=== PATIENT | male | born 1960 | race Caucasian/White ===

== ENCOUNTER 2022-08-28 11:42 | Day surgery (SDC) | payer OTHER, BC ==
[2022-08-28 11:49] VITALS: BMI 31.0
[2022-08-28] MEDS ORDERED: SODIUM CHLORIDE 1,000 ML IV STA (12:36)
[2022-08-28] MEDS ORDERED: CEFTRIAXONE 1 GM in DEXTROSE 5%-WATER - 100 ML IVPB ONE (12:45)
[2022-08-28 12:49] LABS: EOS % 2.8 % (0-4.5); HEMATOCRIT 44.2 % (35.4-49); HEMOGLOBIN 15.6 GM/dL (11.7-16.9); LYMPH % 21.9 % (8-40); MCH 28.1 pg (25.7-33.7); MCHC 35.4 g/dl (32.0-35.9); MEAN CELL VOLUME 79.4 fl (80-96); MEAN PLT VOLUME 7.4 fl (7.5-11.1); MONO % 6.5 % (3.8-10.2); NEUT % 67.8 % (42.8-82.8); PLATELET COUNT 253 10^3/uL (134-434); RBC 5.57 M/mm3 (4.00-5.60); RDW 14.8 % (11.9-15.9); WHITE BLOOD COUNT 9.7 K/mm3 (4.0-10.0)
[2022-08-28 12:57] LABS: INR 1.12 (0.83-1.09)
[2022-08-28 13:16] LABS: POTASSIUM 4.3 mmol/L (3.5-5.1)
[2022-08-28 13:18] LABS: ALBUMIN 4.1 g/dl (3.4-5.0); CALCIUM 9.3 mg/dL (8.5-10.1)
[2022-08-28] MEDS ORDERED: CEFTRIAXONE 1 GM/50 ML BAG ONE (13:19)
[2022-08-28 13:22] LABS: CREATININE 2.7 mg/dL (0.55-1.3)
[2022-08-28 13:24] LABS: BILIRUBIN,TOTAL 0.4 mg/dL (0.2-1); TOT PROT 7.8 g/dl (6.4-8.2)
[2022-08-28] MEDS ORDERED: ONDANSETRON 4 MG/2 ML VIAL IVPUSH ONE (13:48)
[2022-08-28] MEDS ORDERED: ONDANSETRON 4 MG/2 ML VIAL ONE (13:49)
[2022-08-28] MEDS ORDERED: LACTATED RINGERS SOLUTION 1,000 ML IV SCH ×2 (14:45→15:45)
[2022-08-28] MEDS ORDERED: oxyCODONE HCL 5 MG TABLET PO PRN (14:45)
[2022-08-28] MEDS ORDERED: ONDANSETRON 4 MG/2 ML VIAL IVPUSH PRN ×2 (14:45→15:31)
[2022-08-28] MEDS ORDERED: PROPOFOL 20 ML ONE (14:48)
[2022-08-28] MEDS ORDERED: DEXAMETHASONE SOD PHOSPHATE 4 MG/1 ML VIAL ONE (14:49)
[2022-08-28] MEDS ORDERED: LIDOCAINE HCL/PF 2% SDV 5ML VIAL ONE (14:49)
[2022-08-28] MEDS ORDERED: MIDAZOLAM HCL 2 MG/2 ML SINGLE DOSE VIAL ONE (15:08)
[2022-08-28] MEDS ORDERED: ACETAMINOPHEN 1000 MG/100 ML BAG IVPB ONE (15:38)
[2022-08-28 18:32] VITALS: RESP 20; TEMP 97.7
[2022-08-28 18:36] VITALS: BP 146/83; PULSE 71
== END 2022-08-28 18:20 | disposition home or self-care (01) ==
LOC: JER 11:42 → JASUSAT 12:46
PROVIDERS: ATTEND Urology
PROC: 0TJ98ZZ Inspection of Ureter, Via Natural or Artificial Opening Endoscopic (ICD-10-PCS; 2022-08-28)
PROC: 0T768DZ Dilation of Right Ureter with Intraluminal Device, Via Natural or Artificial Opening Endoscopic (ICD-10-PCS; principal; 2022-08-28 14:00)
PROC: BT1DYZZ Fluoroscopy of Right Kidney, Ureter and Bladder using Other Contrast (ICD-10-PCS; 2022-08-28 14:00)
DX: N20.1 Calculus of ureter (principal)
CPT/HCPCS: 36415; 76000-TC-FY; 80053; 85025; 85610; 86850; 86900; 86901; 93005; 93010; 94760; 99285-25; C1758; C1894; C2617; C9803-CS; U0003; U0005

== ENCOUNTER 2022-09-04 04:26 | Day surgery (SDC) | payer OTHER, BC ==
[2022-09-02 15:15] VITALS: BMI 34.0
[2022-09-04] MEDS ORDERED: PROPOFOL 40 ML ONE (13:13)
[2022-09-04] MEDS ORDERED: ceFAZolin SODIUM 1 GM VIAL IVPB ONE (13:15)
[2022-09-04] MEDS ORDERED: KETOROLAC TROMETHAMINE 30 MG/1 ML VIAL ONE (13:55)
[2022-09-04] MEDS ORDERED: ceFAZolin SODIUM 1 GM VIAL ONE ×2 (13:55)
[2022-09-04] MEDS ORDERED: ONDANSETRON 4 MG/2 ML VIAL ONE (13:55)
[2022-09-04] MEDS ORDERED: DEXAMETHASONE SOD PHOSPHATE 4 MG/1 ML VIAL ONE (13:55)
[2022-09-04] MEDS ORDERED: ONDANSETRON 4 MG/2 ML VIAL IVPUSH PRN (14:01)
[2022-09-04] MEDS ORDERED: oxyCODONE HCL 5 MG TABLET PO PRN (14:01)
[2022-09-04 15:54] VITALS: BP 137/72; PULSE 85; RESP 16; TEMP 97.7
== END 2022-09-04 15:50 | disposition home or self-care (01) ==
LOC: JASU-SURG 04:26
PROVIDERS: ATTEND Urology
PROC: 0TC68ZZ Extirpation of Matter from Right Ureter, Via Natural or Artificial Opening Endoscopic (ICD-10-PCS; principal; 2022-09-04 13:00)
PROC: 0T768DZ Dilation of Right Ureter with Intraluminal Device, Via Natural or Artificial Opening Endoscopic (ICD-10-PCS; 2022-09-04 13:00)
PROC: BT1DYZZ Fluoroscopy of Right Kidney, Ureter and Bladder using Other Contrast (ICD-10-PCS; 2022-09-04 13:00)
DX: N20.1 Calculus of ureter (principal); N40.0 Benign prostatic hyperplasia without lower urinary tract symptoms
CPT/HCPCS: 82962; 94760; C1747; C1758; C1894; C2617

== ENCOUNTER 2022-10-08 04:34 | Day surgery (SDC) | payer OTHER, BC ==
[2022-10-07 09:53] VITALS: BMI 33.2
[2022-10-08 12:59] VITALS: RESP 20
[2022-10-08] MEDS ORDERED: MIDAZOLAM HCL 2 MG/2 ML SINGLE DOSE VIAL ONE (14:29)
[2022-10-08] MEDS ORDERED: ceFAZolin SODIUM 1 GM VIAL IVPB ONE (14:30)
[2022-10-08] MEDS ORDERED: ceFAZolin SODIUM 1 GM VIAL ONE (14:51)
[2022-10-08] MEDS ORDERED: DEXAMETHASONE SOD PHOSPHATE 4 MG/1 ML VIAL ONE (14:51)
[2022-10-08] MEDS ORDERED: BETAMET ACET/BETAMET NA PH 30 MG/5 ML VIAL ONE (14:51)
[2022-10-08] MEDS ORDERED: KETOROLAC TROMETHAMINE 30 MG/1 ML VIAL ONE (14:51)
[2022-10-08] MEDS ORDERED: ONDANSETRON 4 MG/2 ML VIAL ONE (14:51)
[2022-10-08 17:54] VITALS: TEMP 97.6
[2022-10-08 18:07] VITALS: BP 125/82; PULSE 68
== END 2022-10-08 16:20 | disposition home or self-care (01) ==
LOC: JASU-SURG 04:34
PROVIDERS: ATTEND Urology
PROC: 0TF4XZZ Fragmentation in Left Kidney Pelvis, External Approach (ICD-10-PCS; principal; 2022-10-08 14:45)
DX: N20.0 Calculus of kidney (principal)
CPT/HCPCS: 82962